=== PATIENT | female | born 1935 | race Two or more races ===

== ENCOUNTER → 2017-01-06 | Outpatient (CLI) | payer MEDICARE, MEDICAID ==
--- NOTE | 2017-01-06 14:28 | RADRPT ---
PROCEDURE: Left knee radiographs. CLINICAL INDICATION: Left knee pain. TECHNIQUE: Four views. Weight bearing. Frontal, lateral, oblique, and patellar view. COMPARISON: No prior studies are available for comparison. FINDINGS: There is no fracture or dislocation. Vascular calcifications are present consistent with atherosclerosis. There are degenerative changes with osteophytes arising from all 3 joint compartment margins. There is no joint space narrowing or deformity. There is chondrocalcinosis. The soft tissues are otherw ise normal. There is no lytic or blastic lesion. There is no radiopaque foreign body. IMPRESSION: 1. Atherosclerosis. 2. Chondrocalcinosis. 3. Mild degenerative change. RPTAT: QQ .Frantz Arellano MD, MD Date Time Electronically viewed and signed by .Frantz Arellano MD, on 01/06/2017 14:28 .R/
== END | disposition home or self-care (01) ==
LOC: HKI 11:23
PROVIDERS: ATTEND Orthopaedic Surgery
DX: M25.562 Pain in left knee (principal); M17.12 Unilateral primary osteoarthritis, left knee
CPT/HCPCS: 73564; G0463